=== PATIENT | male | born 1955 | race Caucasian/White ===

== ENCOUNTER 2017-09-16 08:09 | Emergency (ER) | payer BC ==
[~2017-09-16] VITALS: Ht 188 cm; Wt 93.2 kg
[2017-09-16] MEDS ORDERED: CHOL100053 PO (08:17)
[2017-09-16 09:44] VITALS: BP 111/77
[2017-09-16] MEDS ORDERED: DOXYCYCLINE 100 MG CAPSULE PO ONE (10:30)
[2017-09-16] MEDS ORDERED: DiphenhydrAMINE HCL 25 MG CAPSULE PO ONE (10:30)
[2017-09-16] MEDS ORDERED: IBUPROFEN 600 MG TABLET PO ONE (10:30)
== END 2017-09-16 10:56 | disposition home or self-care (01) ==
LOC: EMS 08:12
DX: T63.301A Toxic effect of unspecified spider venom, accidental (unintentional), initial encounter (principal); E78.00 Pure hypercholesterolemia, unspecified; Z88.0 Allergy status to penicillin; Y92.89 Other specified places as the place of occurrence of the external cause
CPT/HCPCS: 99283; 99284